=== PATIENT | male | born 1990 | race Caucasian/White ===

== ENCOUNTER 2022-10-08 11:23 | Emergency (ER) | payer OTHER ==
[~2022-10-08] VITALS: Ht 177.8 cm; Wt 104.3 kg
[2022-10-08 11:44] VITALS: BP 113/65; PULSE 81; RESP 19; TEMP 98.1; O2SAT 100
[2022-10-08] MEDS ORDERED: NALO4SPR NS (13:29)
[2022-10-08 14:24] VITALS: BP 125/71; PULSE 74; RESP 20; O2SAT 97
== END 2022-10-08 14:30 | disposition home or self-care (01) ==
LOC: MED 11:23
DX: T40.1X1A Poisoning by heroin, accidental (unintentional), initial encounter (principal); Y92.89 Other specified places as the place of occurrence of the external cause
CPT/HCPCS: 99283